=== PATIENT | female | born 1980 | race Caucasian/White ===

== ENCOUNTER 2016-07-24 09:23 | Emergency (ER) | payer OTHER ==
[~2016-07-24] VITALS: Ht 162.6 cm; Wt 109.0 kg
[2016-07-24 12:28] VITALS: BP 124/82
== END 2016-07-24 12:34 | disposition home or self-care (01) ==
LOC: EMS 09:26
DX: J40 Bronchitis, not specified as acute or chronic (principal)
CPT/HCPCS: 71020; 99284